=== PATIENT | male | born 1985 | race Caucasian/White ===

== ENCOUNTER 2021-07-23 10:44 | Emergency (ER) | payer BC ==
[2021-07-23 11:03] VITALS: TEMP 98.8; BMI 34.7
[2021-07-23] MEDS ORDERED: ONDANSETRON 4 MG/2 ML VIAL IVPUSH ONE (11:09)
[2021-07-23] MEDS ORDERED: SODIUM CHLORIDE 1,000 ML IV STA (11:09)
[2021-07-23] MEDS ORDERED: ONDANSETRON 4 MG/2 ML VIAL ONE (11:17)
[2021-07-23 11:59] LABS: ALBUMIN 5.2 g/dl (3.4-5.0); BILIRUBIN,TOTAL 1.1 mg/dl (0.2-1); CALCIUM 9.7 mg/dl (8.5-10); CREATININE 1.7 mg/dl (0.55-1.3); TOT PROT 9.2 g/dl (6.4-8.2)
[2021-07-23 13:23] LABS: BASO % 0.2 % (0-2.0); EOS % 0.1 % (0-4.5); HEMATOCRIT 53.7 % (35.4-49); HEMOGLOBIN 18.2 GM/dL (11.7-16.9); LYMPH % 3.9 % (8-40); MCH 26.9 pg (25.7-33.7); MEAN CELL VOLUME 79.4 fl (80-96); MEAN PLT VOLUME 9.1 fl (7.5-11.1); MONO % 6.5 % (3.8-10.2); NEUT % 89.3 % (42.8-82.8); PLATELET COUNT 267 10^3/uL (134-434); RBC 6.76 M/mm3 (4.00-5.60); RDW 13.9 % (11.9-15.9); WHITE BLOOD COUNT 15.1 K/mm3 (4.0-10.0)
[2021-07-23 13:45] VITALS: BP 144/89; PULSE 109
[2021-07-24 10:08] LABS: SARS-CoV-2 NAA Not Detected (Not Detected)
== END 2021-07-23 13:45 | disposition home or self-care (01) ==
LOC: FER 10:44
PROC: 3E033GC Introduction of Other Therapeutic Substance into Peripheral Vein, Percutaneous Approach (ICD-10-PCS; principal; 2021-07-23)
PROC: 3E0337Z Introduction of Electrolytic and Water Balance Substance into Peripheral Vein, Percutaneous Approach (ICD-10-PCS; 2021-07-23)
DX: R11.2 Nausea with vomiting, unspecified (principal); R19.7 Diarrhea, unspecified
CPT/HCPCS: 36415; 74177-TC; 80053; 83690; 85025; 99285-25; C9803; Q9967; U0003; U0005